=== PATIENT | female | born 1945 | race Caucasian/White ===

== ENCOUNTER → 2016-09-22 | Day surgery (SDC) | payer MEDICARE, MEDICAID ==
[~2016-09-22] VITALS: Ht 154.9 cm; Wt 95.3 kg
[~2016-09-22] MED LIST: ACETAMINOPHEN WITH CODEINE 300/30MG TABLET PO PRN; ACETAZOLAMIDE; ACETYLCHOLINE CHLORIDE INTRAOCULAR SOLUTION 1:100 ELECTROLYTE DILUENT IO ONE; ALEN70TA13 PO; BALANCED SALT IRRIG SOLN 15ML ONE; BUPIVACAINE HCL/PF 0.75% (7.5MG/ML) 10ML ONE; CARB200T PO; CIPROFLOXACIN 0.3% OPHTH SOLN 2.5ML LEFTEYE SCH; CIPROFLOXACIN 0.3% OPHTH SOLN 2.5ML ONE; CYCLOPENTOLATE HCL 1% OPHTH DROPS 2ML LEFTEYE SCH; CYCLOPENTOLATE HCL 1% OPHTH DROPS 2ML ONE; FENTANYL CITRATE/PF 50MCG/ML 2ML VIAL ONE; HYALURONATE SODIUM 14 MG/ML 0.85ML SYRINGE IO ONE; INSU200I SQ; KETOROLAC TROMETHAMINE 0.5% OPHTH 3ML LEFTEYE SCH; LIDOCAINE HCL 2%/EPINEPHRINE 1:100,000 20 ML VIAL INFIL ONE; LOSA50TA20 PO; METHYLPREDNISOLONE SOD SUCC 40 MG/ML VIAL ONE; MIDAZOLAM HCL 2 MG/2 ML VIAL ONE; MORPHINE SULFATE 2 MG/ML CPJ (NOT FOR IM USE) IV PRN; NEO/POLYMYX B SULF/DEXAMETH OPHTH OINT 3.5GM ONE; ONDANSETRON HCL 4MG/2ML VIAL IV PRN; ONDANSETRON HCL 4MG/2ML VIAL ONE; PHENYLEPHRINE 2.5% OPHTH 15 DROP/ML BOTTLE LEFTEYE SCH; PILOCARPINE HCL 2% OPHTH DROPS 15ML ONE; PREG150C PO; PROPOFOL 200MG/20ML VIAL IV ONE; SERT25TA74 PO; SODIUM CHLORIDE 0.9% 1,000 ML IV SCH; TETRACAINE 0.5% OPHTH DROPS 2ML ONE; TOBRAMYCIN SULFATE 80MG/2ML 30ML ONE; TROPICAMIDE 1% OPHTH DROPS 15ML LEFTEYE SCH; TROPICAMIDE 1% OPHTH DROPS 15ML ONE
== END | disposition home or self-care (01) ==
LOC: OR 07:14
PROVIDERS: ATTEND Ophthalmology
DX: H26.8 Other specified cataract (principal); E11.9 Type 2 diabetes mellitus without complications; J45.909 Unspecified asthma, uncomplicated; I10 Essential (primary) hypertension; E66.01 Morbid (severe) obesity due to excess calories
CPT/HCPCS: 66982; 82962; 88300; J2250; J2405; J2920; J3010; J3260; J3490; J7030; V2632; J2704

== ENCOUNTER 2020-10-29 19:10 | Emergency (ER) | payer MEDICARE, MEDICAID ==
[~2020-10-29] VITALS: Ht 127 cm; Wt 70.0 kg
[~2020-10-29 19:10] MED LIST changes: -ACETAMINOPHEN WITH CODEINE 300/30MG TABLET PO PRN; -ACETYLCHOLINE CHLORIDE INTRAOCULAR SOLUTION 1:100 ELECTROLYTE DILUENT IO ONE; -ALEN70TA13 PO; -BALANCED SALT IRRIG SOLN 15ML ONE; -BUPIVACAINE HCL/PF 0.75% (7.5MG/ML) 10ML ONE; -CIPROFLOXACIN 0.3% OPHTH SOLN 2.5ML LEFTEYE SCH; -CIPROFLOXACIN 0.3% OPHTH SOLN 2.5ML ONE; -CYCLOPENTOLATE HCL 1% OPHTH DROPS 2ML LEFTEYE SCH; -CYCLOPENTOLATE HCL 1% OPHTH DROPS 2ML ONE; -FENTANYL CITRATE/PF 50MCG/ML 2ML VIAL ONE; -HYALURONATE SODIUM 14 MG/ML 0.85ML SYRINGE IO ONE; -KETOROLAC TROMETHAMINE 0.5% OPHTH 3ML LEFTEYE SCH; -LIDOCAINE HCL 2%/EPINEPHRINE 1:100,000 20 ML VIAL INFIL ONE; -LOSA50TA20 PO; +LOSA50TA41 PO; -METHYLPREDNISOLONE SOD SUCC 40 MG/ML VIAL ONE; -MIDAZOLAM HCL 2 MG/2 ML VIAL ONE; -MORPHINE SULFATE 2 MG/ML CPJ (NOT FOR IM USE) IV PRN; -NEO/POLYMYX B SULF/DEXAMETH OPHTH OINT 3.5GM ONE; -ONDANSETRON HCL 4MG/2ML VIAL IV PRN; -ONDANSETRON HCL 4MG/2ML VIAL ONE; -PHENYLEPHRINE 2.5% OPHTH 15 DROP/ML BOTTLE LEFTEYE SCH; -PILOCARPINE HCL 2% OPHTH DROPS 15ML ONE; -PROPOFOL 200MG/20ML VIAL IV ONE; -SODIUM CHLORIDE 0.9% 1,000 ML IV SCH; -TETRACAINE 0.5% OPHTH DROPS 2ML ONE; -TOBRAMYCIN SULFATE 80MG/2ML 30ML ONE; -TROPICAMIDE 1% OPHTH DROPS 15ML LEFTEYE SCH; -TROPICAMIDE 1% OPHTH DROPS 15ML ONE
[2020-10-29] MEDS ORDERED: ACETAMINOPHEN 325MG TABLET PO ONE (20:15)
[2020-10-29 21:00] VITALS: BP 155/54
== END 2020-10-29 21:00 | disposition home or self-care (01) ==
LOC: ER 19:10
DX: S92.412A Displaced fracture of proximal phalanx of left great toe, initial encounter for closed fracture (principal); W06.XXXA Fall from bed, initial encounter; Y93.89 Activity, other specified; Y92.038 Other place in apartment as the place of occurrence of the external cause; I10 Essential (primary) hypertension; E11.9 Type 2 diabetes mellitus without complications; G62.9 Polyneuropathy, unspecified
CPT/HCPCS: 73630; 99283

== ENCOUNTER 2021-07-29 16:20 | Emergency (ER) | payer MEDICARE, MEDICAID ==
[~2021-07-29] VITALS: Ht 154.9 cm; Wt 65.0 kg
[2021-07-29] MEDS ORDERED: ONDANSETRON HCL 4MG/2ML INJ IV STA (16:46)
[2021-07-29] MEDS ORDERED: SODIUM CHLORIDE 0.9% 1,000 ML IV ONE (17:00)
[2021-07-29 17:42] LABS: BASOPHILS % 0.5 % (0.0-2.0); EOSINOPHILS % 0.2 % (0.0-5.0); HEMATOCRIT. 39.5 % (36.0-48.0); HEMOGLOBIN. 13.3 g/dL (12.0-16.0); LYMPHOCYTES % 14.2 % (20.0-50.0); MEAN CORPUSCULAR HEMOGLOBIN 28.6 pg (28.0-32.0); MEAN CORPUSCULAR VOLUME 84.6 fL (81.0-99.0); MONOCYTES % 6.7 % (2.0-8.0); NEUTROPHILS % 78.4 % (40.0-76.0); PLATELET 225 x1000/uL (130-400); RED BLOOD CELL COUNT 4.66 mill/uL (4.2-5.4); RED CELL DISTRIBUTION WIDTH 13.3 % (11.6-14.6)
[2021-07-29 17:46] LABS: CHLORIDE 103 mEq/L (98-107)
[2021-07-29] MEDS ORDERED: ONDA4TAB5 MT (20:11)
[2021-07-29 20:13] VITALS: BP 172/71
== END 2021-07-29 20:56 | disposition home or self-care (01) ==
LOC: ER 16:20
DX: R11.2 Nausea with vomiting, unspecified (principal); I10 Essential (primary) hypertension; E11.9 Type 2 diabetes mellitus without complications; Z79.899 Other long term (current) drug therapy
CPT/HCPCS: 36415; 80053; 83690; 85025; 93005; 96361; 96374; 99284; J2405; J7030

== ENCOUNTER 2024-01-08 18:14 | Emergency (ER) | payer OTHER, MEDICAID ==
[~2024-01-08] VITALS: Ht 160 cm; Wt 77.0 kg
[~2024-01-08 18:14] MED LIST changes: +ONDA4TAB5 MT
[2024-01-08 18:17] VITALS: TEMP 98.2; O2SAT 95
[2024-01-08] MEDS ORDERED: CIPR-263 MT (21:17)
[2024-01-08] MEDS ORDERED: CIPR2.5D20 LEFTEYE (21:17)
[2024-01-08] MEDS: CIPROFLOXACIN 0.3% OPHTH SOLN 2.5ML LEFTEYE ONE (22:27)
[2024-01-08] MEDS: LEVOFLOXACIN 250MG TABLET PO ONE (22:27)
[2024-01-08 22:28] VITALS: BP 122/54; PULSE 74; RESP 18
== END 2024-01-08 22:30 | disposition home or self-care (01) ==
LOC: ER 18:14
DX: H10.89 Other conjunctivitis (principal); E11.9 Type 2 diabetes mellitus without complications; I10 Essential (primary) hypertension; Z98.890 Other specified postprocedural states
CPT/HCPCS: 99283

== ENCOUNTER 2024-01-31 11:32 | Inpatient (IN) | payer OTHER, MEDICAID, MEDICARE ==
[~2024-01-31] VITALS: Ht 160 cm; Wt 74.4 kg
[~2024-01-31 11:32] MED LIST changes: +CIPR-263 MT; +CIPR2.5D20 LEFTEYE
[2024-01-31 11:34] VITALS: O2SAT 99
[2024-01-31 11:55] LABS: BASOPHILS % 0.7 % (0.0-2.0); EOSINOPHILS % 0.7 % (0.0-5.0); HEMATOCRIT. 39.7 % (36.0-48.0); LYMPHOCYTES % 14.6 % (20.0-50.0); MEAN CORPUSCULAR HEMOGLOBIN 28.4 pg (28.0-32.0); MEAN CORPUSCULAR HGB CONC 32.6 g/dL (31.0-37.0); MEAN CORPUSCULAR VOLUME 87.1 fL (81.0-99.0); MEAN PLATELET VOLUME 9.4 fl (7.4-10.4); MONOCYTES % 5.2 % (2.0-8.0); NEUTROPHILS % 78.8 % (40.0-76.0); PLATELET 235 x1000/uL (130-400); RED BLOOD CELL COUNT 4.56 mill/uL (4.2-5.4); RED CELL DISTRIBUTION WIDTH 15.6 % (11.6-14.6); WHITE BLOOD COUNT 9.6 x1000/uL (4.5-11.0)
[2024-01-31] MEDS: ONDANSETRON HCL 4MG/2ML INJ IV ONE (11:55)
[2024-01-31] MEDS: SODIUM CHLORIDE 0.9% 1,000 ML IV ONE (11:56)
[2024-01-31 12:07] LABS: TROPONIN I HIGH SENSITIVITY 8 ng/L (3.0-34)
[2024-01-31 12:08] LABS: BETA HYDROXYBUTYRATE 2.4 mMol/L (0.0-0.3)
[2024-01-31 12:39] LABS: POTASSIUM 4.5 mEq/L (3.5-5.1)
[2024-01-31 12:40] LABS: BG BASE EXCESS -5.1 mmol/L (-2.0-2.0); BG DEOXYHEMOGLOBIN 4.5 % (0.0-5.0); BG FRACTION INSPIRED OXYGEN 21; BG HCO3 ACT 20.1 mmol/L (22.0-26.0); BG METHEMOGLOBIN 0.3 % (0.0-1.5); BG OXYGEN SATURATION 95.4 % (92.0-98.5); BG OXYHEMOGLOBIN 94.2 % (94.0-97.0); BG PCO2 38.2 mmHg (35.0-45.0); BG PO2 81.5 mmHg (75.0-100.0); BG SAMPLE SITE RIGHT RADIAL; BG TOTAL HEMOGLOBIN 11.6 g/dL (12.0-18.0); BG VENT MODE ROOM AIR
[2024-01-31 12:40] LABS: CALCIUM 9.3 mg/dL (8.7-10.4)
[2024-01-31 12:45] LABS: CREATININE 1.1 mg/dL (0.6-1.0)
[2024-01-31 15:05] LABS: CLARITY URINE CLEAR (CLEAR); COLOR URINE YELLOW (YELLOW); GLUCOSE URINE 3+ (NEGATIVE); KETONES URINE 2+ (NEGATIVE); LEUKOCYTE ESTERASE URINE NEGATIVE (NEGATIVE); NITRITE URINE NEGATIVE (NEGATIVE); OCCULT BLOOD URINE TRACE (NEGATIVE); PROTEIN URINE 1+ (NEGATIVE); SPECIFIC GRAVITY URINE 1.027 (1.005-1.030)
[2024-01-31 15:37] LABS: BACTERIA URINE TRACE
[2024-01-31 15:38] LABS: RBC URINE 0-2 /hpf (0-2); SQUAMOUS EPITHELIAL CELL URINE FEW /lpf (RARE/1+); WBC URINE 0-2 /hpf (0-2)
[2024-01-31] MEDS ORDERED: CLONIDINE 0.1MG TABLET PO PRN (16:30)
[2024-01-31] MEDS: PIPERACILLIN/TAZO 3.375G/50ML 50 ML IV SCH (17:53)
[2024-01-31 20:00] VITALS: BP_SYST 103; BP_DIAS 40; BP_DIAS 50; PULSE 84; RESP 14; RESP 15; TEMP 97.1; TEMP 97.3
[2024-02-01] VITALS: BP 110/48; PULSE 80; RESP 15; TEMP 97
[2024-02-01 01:00] VITALS: BP 152/75
[2024-02-01 08:00] VITALS: BP 155/60; PULSE 89; RESP 16; TEMP 98.9
[2024-02-01 08:02] LABS: POTASSIUM 4.5 mEq/L (3.5-5.1)
[2024-02-01 08:03] LABS: CALCIUM 8.9 mg/dL (8.7-10.4)
[2024-02-01 08:16] LABS: BASOPHILS % 0.6 % (0.0-2.0); EOSINOPHILS % 1.4 % (0.0-5.0); HEMATOCRIT. 38.6 % (36.0-48.0); HEMOGLOBIN. 12.4 g/dL (12.0-16.0); LYMPHOCYTES % 17.8 % (20.0-50.0); MEAN CORPUSCULAR HGB CONC 32.2 g/dL (31.0-37.0); MEAN CORPUSCULAR VOLUME 86.9 fL (81.0-99.0); MEAN PLATELET VOLUME 9.4 fl (7.4-10.4); MONOCYTES % 7.5 % (2.0-8.0); NEUTROPHILS % 72.7 % (40.0-76.0); PLATELET 242 x1000/uL (130-400); RED BLOOD CELL COUNT 4.44 mill/uL (4.2-5.4); RED CELL DISTRIBUTION WIDTH 15.8 % (11.6-14.6); WHITE BLOOD COUNT 9.2 x1000/uL (4.5-11.0)
[2024-02-01 12:00] VITALS: BP 157/70; PULSE 87; RESP 19; TEMP 97.8
[2024-02-01 16:00] VITALS: BP 156/37; PULSE 83; RESP 15; TEMP 97.4
[2024-02-01 20:00] VITALS: BP 150/67; PULSE 86; RESP 20; TEMP 97.5
[2024-02-02] VITALS: BP 147/51; PULSE 84; PULSE 87; RESP 20; TEMP 97.5; TEMP 97.6
[2024-02-02 04:00] VITALS: BP 134/55; PULSE 75; RESP 20; TEMP 97.7
[2024-02-02 08:00] VITALS: BP 112/32; PULSE 76; RESP 19; TEMP 96.9
[2024-02-02 10:05] LABS: POTASSIUM 4.5 mEq/L (3.5-5.1)
[2024-02-02 10:06] LABS: CALCIUM 8.9 mg/dL (8.7-10.4)
[2024-02-02 10:11] LABS: CREATININE 1.1 mg/dL (0.6-1.0)
[2024-02-02 10:15] LABS: BASOPHILS % 0.8 % (0.0-2.0); EOSINOPHILS % 2.8 % (0.0-5.0); HEMATOCRIT. 38.8 % (36.0-48.0); HEMOGLOBIN. 12.7 g/dL (12.0-16.0); LYMPHOCYTES % 16.4 % (20.0-50.0); MEAN CORPUSCULAR HEMOGLOBIN 28.4 pg (28.0-32.0); MEAN CORPUSCULAR HGB CONC 32.7 g/dL (31.0-37.0); MEAN CORPUSCULAR VOLUME 86.8 fL (81.0-99.0); MEAN PLATELET VOLUME 9.3 fl (7.4-10.4); MONOCYTES % 6.4 % (2.0-8.0); NEUTROPHILS % 73.6 % (40.0-76.0); PLATELET 234 x1000/uL (130-400); RED BLOOD CELL COUNT 4.47 mill/uL (4.2-5.4); RED CELL DISTRIBUTION WIDTH 15.9 % (11.6-14.6); WHITE BLOOD COUNT 6.4 x1000/uL (4.5-11.0)
[2024-02-02 12:00] VITALS: BP 168/80; PULSE 83; RESP 19; TEMP 97.2
[2024-02-02] MEDS ORDERED: DEXTROSE 50% WATER 50ML SYRINGE IV PRN (13:15)
[2024-02-02 16:00] VITALS: BP 149/45; PULSE 78; RESP 17; TEMP 96.5
[2024-02-02] MEDS ORDERED: BLOOD SUGAR DIAGNOSTIC STRIP TEST SCH (16:40)
[2024-02-02] MEDS ORDERED: INSULIN LISPRO 100 UNITS/ML SUBCUT SCH (17:10)
== END 2024-02-02 18:20 | disposition home health service (06) | DRG 639 ==
LOC: ER 11:32 → 5WST 13:21 → 7EST 21:26
PROVIDERS: ADMIT Internal Medicine; ATTEND Internal Medicine
DX: E11.65 Type 2 diabetes mellitus with hyperglycemia (principal); I16.0 Hypertensive urgency; I10 Essential (primary) hypertension; Z79.4 Long term (current) use of insulin
CPT/HCPCS: 36415; 36600; 71045; 80048; 81003; 82010; 82375; 82805; 82962; 83036; 84484; 85025; 93005; 99285; J2405; J2543; J7030